=== PATIENT | male | born 1980 | race Caucasian/White ===

== ENCOUNTER 2018-12-17 20:14 | Emergency (ER) | payer MEDICAID ==
[~2018-12-17] VITALS: Ht 160 cm; Wt 55.0 kg
[~2018-12-17 20:14] MED LIST: LANT3I SC; METF500T PO; NOVO3I SC; NPH,100V SC; OMEG-135 PO
[2018-12-17 20:17] VITALS: Ht 160 cm; Wt 55.0 kg
[2018-12-17] MEDS ORDERED: KETOROLAC 30 MG INJ IM STA (20:59)
[2018-12-17] MEDS ORDERED: DEXAMETHASONE 10 MG/ML 1 ML INJ IM ONE (21:00)
[2018-12-17] MEDS ORDERED: HYDROCODONE/APAP (5/325) TAB PO ONE (21:00)
--- NOTE | 2018-12-17 21:12 | ERD ---
ER Documentation Chief Complaint Chief Complaint RIGHT LEG PAIN AND SWELLING X 4 DAYS HPI 38-year-old male with history of diabetes presents right leg pain and swelling for the past 4 days. Denies any history of injury. Also states his been having lower back pain. He is ambulatory. Taking ibuprofen for the pain but is not helping. Patient is ambulatory. Denies saddle numbness, incontinence, pain worse at night or when supine, weight loss, night sweats, fatigue, focal neurological defecits, recent bacterial infection, IV drug use, or immunosuppression. Denies allergies. Denies surgeries. Denies ETOH, drug, or tobacco use. ROS All systems reviewed and are negative except as per history of present illness. Medications Home Meds Active Scripts Hydrocodone/Acetaminophen ([place] 5-325 Tablet) 1 Each Tablet, 1 TAB PO Q6H PRN for PAIN, #10 TAB Prov:SEKOU SAENZ 12/18/18 Ibuprofen* (Motrin*) 600 Mg Tab, 600 MG PO Q6 for pain, #30 TAB Prov:SEKOU SAENZ 12/18/18 Prednisone* (Prednisone*) 20 Mg Tab, 40 MG PO DAILY for back pain for 4 Days, TAB Prov:SEKOU SAENZ 12/18/18 Insulin Aspart* (Novolog Insulin Pen*) 100 Unit/Ml Soln, 12 UNIT SC WITH MEALS for 30 Days Prov:NAVDEEP REID NP 01/29/15 Nph, Human Insulin Isophane (Humulin N) 100 Unit/Ml Solution, 6 UNIT SC HS for 30 Days, VIAL Prov:NAVDEEP REID NP 01/29/15 Insulin Glargine* (Lantus*) 100 Unit/Ml Soln, 24 UNIT SC HS for 30 Days Prov:NAVDEEP REID NP 01/29/15 Metformin Hcl (Glucophage) 500 Mg Tab, 500 MG PO PC BREAKFAST DINNER, #60 Prov:NAVDEEP REID NP 01/29/15 Fish Oil* (Fish Oil*) 1,000 Mg Cap, 1000 MG PO BID for 30 Days, CAP Prov:NAVDEEP REID NP 01/29/15 Allergies Allergies: Coded Allergies: No Known Allergy (Unverified , 01/27/15) PMhx/Soc History of Surgery: No Anesthesia Reaction: No Hx Neurological Disorder: No Hx Respiratory Disorders: No Hx Cardiac Disorders: No Hx Psychiatric Problems: No Hx Miscellaneous Medical Probl: No Hx Alcohol Use: Yes (OCCASIONALLY) Hx Substance Use: No Hx Tobacco Use: Yes (STOPED 2 MONTH AGO) FmHx Family History: No diabetes, No coronary disease, No other Physical Exam Vitals Vital Signs Date Temp Pulse Resp B/P (MAP) Pulse Ox O2 O2 Flow FiO2 Time Delivery Rate 12/17/18 97.9 106 22 150/83 100 20:17 (105) Physical Exam Const: No acute distress Head: Atraumatic Eyes: Normal Conjunctiva ENT: Normal External Ears, Nose and Mouth. Neck: Full range of motion. No meningismus. Resp: Clear to auscultation bilaterally Cardio: Regular rate and rhythm, no murmurs Abd: Soft, non tender, non distended. Normal bowel sounds Skin: No petechiae or rashes Back: No midline or flank tenderness. Limited range of motion. Flexion elicits pain. Positive straight leg raise on left side. There is no edema, erythema, ecchymosis, or conor deformity noted. Overlying skin is intact. Compartments are soft and warm. There is no pallor or cyanosis. Range of motion, distal pulses, and distal sensation is intact. There is normal cap refill. Ext: No cyanosis, or edema Neur: Awake and alert Psych: Normal Mood and Affect Results 24 hrs Laboratory Tests Test 12/17/18 20:55 Creatine Kinase 44 IU/L Current Medications Medications Dose Sig/Kenny Start Time Status Last (Trade) Ordered Route PRN Stop Time Admin Dose Reason Admin 10 mg ONCE ONCE 12/17/18 DC 12/17/18 Dexamethasone IM 21:00 21:40 (Decadron) 12/17/18 21:04 Ketorolac 30 mg ONCE STAT 12/17/18 DC 12/17/18 Tromethamine IM 20:59 21:41 (Toradol) 12/17/18 21:04 1 tab ONCE ONCE 12/17/18 DC 12/17/18 Acetaminophen PO 21:00 21:40 / 12/17/18 21:04 Hydrocodone Bitart (Preston (5/325)) Procedures/MDM IAGNOSTIC IMAGING REPORT Patient: CASA KISER : 1980 Age: 38 Sex: M MR #: [id number] DOS: 12/17/182058 Ordering MD: SEKOU SAENZ Location: [facility] Room/Bed: PROCEDURE: US Lower extremity Venous. CLINICAL INDICATION: Pain and swelling TECHNIQUE: Multiple sonographic images of the left lower extremity deep venous system were obtained utilizing grayscale, color-flow, compressive sonography and doppler imaging with augmentation. The images were reviewed on a PACS workstation. COMPARISON: None. FINDINGS: There is normal compressibility and flow within the left common femoral, superficial femoral and popliteal veins. The visualized deep veins of the calf are patent as well. IMPRESSION: No sonographic evidence for deep venous thrombosis in the left lower extremity. RPTAT:HCLE Physician Raegan Date Time Electronically viewed and signed by pravin Schultz Physician on 12/17/2018 23:35 cE/ CC: SEKOU SAENZ [id number] 38-year-old male with history of diabetes presents right leg pain and swelling for the past 4 days. Denies any history of injury. Also states his been having lower back pain. He is ambulatory. Taking ibuprofen for the pain but is not helping. Patient is ambulatory. Denies saddle numbness, incontinence, pain worse at night or when supine, weight loss, night sweats, fatigue, focal neurological defecits, recent bacterial infection, IV drug use, or immunosuppression. Denies allergies. Denies surgeries. Denies ETOH, drug, or tobacco use. Venous ultrasound and CK were ordered. Both within normal limits. Presentation is consistent with sciatica. Patient given IM Toradol and Decadron in the ER and discharged with short course of steroid and ibuprofen. I have low suspicion for neurovascular compromise, compartment syndrome, fracture, osteomyelitis, septic joint, or other emergent condition. I have low suspicion for epidural abscess, cauda equina, abdominal aortic aneurysm, pyelonephritis, aortic dissection, spinal fracture, or other emergent conditions based on patient history and exam findings. Patient discharged with strict ER p recautions. Patient advised to follow up with PMD. All questions answered at discharge. Departure Diagnosis: Primary Impression: Sciatica Laterality: left Qualified Codes: M54.32 - Sciatica, left side Condition: Stable DANYSEKOU Dec 17, 2018 21:12
[2018-12-18] MEDS ORDERED: IBUP-1542 PO (00:35)
[2018-12-18] MEDS ORDERED: HYDR-4011 PO (00:35)
[2018-12-18] MEDS ORDERED: PRED20TA PO (00:35)
[2018-12-18 00:53] VITALS: BP 133/68; PULSE 81; RESP 19
== END 2018-12-18 00:55 | disposition home or self-care (01) ==
LOC: FTE 20:14
DX: M54.32 Sciatica, left side (principal); E11.9 Type 2 diabetes mellitus without complications; Z79.4 Long term (current) use of insulin; Z87.891 Personal history of nicotine dependence
CPT/HCPCS: 36415; 82550; 93971; 96372; J1100; J1885; Z7502; Z7610

== ENCOUNTER 2019-03-30 08:06 | Emergency (ER) | payer MEDICAID ==
[~2019-03-30] VITALS: Ht 160 cm; Wt 56.5 kg
[~2019-03-30 08:06] MED LIST changes: +HYDR-4011 PO; +IBUP-1542 PO; +PRED20TA PO
[2019-03-30 08:09] VITALS: Ht 160 cm; Wt 56.5 kg
[2019-03-30] MEDS ORDERED: morphine 4 MG/ML VIAL IV STA (08:27)
[2019-03-30] MEDS ORDERED: SOD CHLORIDE 0.9% 1,000 ML IV STA (08:27)
[2019-03-30] MEDS ORDERED: ONDANSETRON 4 MG INJ IV STA (08:27)
[2019-03-30] MEDS ORDERED: CEFTRIAXONE 1 GM/50 ML (PMX) 50 ML IVPB ONE (08:30)
--- NOTE | 2019-03-30 08:30 | ERD ---
ER Documentation Chief Complaint Chief Complaint ABSCESS BEHIND RT EAR FIRST NOTICED 03/27 HPI 38-year-old male presents with complaint of pain redness behind his right ear. First noticed it on Tuesday. States that the pain is currently 10 out of 10. Pain is made worse upon palpation. States that he is up-to-date on his vac cines. Denies any fevers, hearing loss, discharge from the ear, neck stiffness, photophobia, vomiting, focal deficits. ROS All systems reviewed and are negative except as per history of present illness. Medications Home Meds Active Scripts Naloxone Hcl 1mg/1mL 2mL syr (Narcan 1mg/1mL 2mL syr) 1 Mg/Ml Soln, 1 ML NS .Q2- 3 MIN PRN for OPIOID OVERDOSE, #2 SYR Dispense with mucosal atomizer devices. Using mucosal atomizer devices spray 1mL into each nostril. Repeat after 2-3 minutes if no or minimal response. Prov:SEKOU SAENZ 03/30/19 Ibuprofen* (Motrin*) 600 Mg Tab, 600 MG PO Q6H PRN for PAIN AND OR ELEVATED T EMP, #30 TAB Prov:SEKOU SAENZ 03/30/19 Oxycodone HCl/Acetaminophen (Percocet 5-325 mg Tablet) 1 Each Tablet, 1-2 EACH PO Q6, #20 TAB Prov:SEKOU SAENZ 03/30/19 Amoxicillin/Potassium Clav (Amox-Clav 875-125 mg Tablet) 875-125 mg Tab, 1 TAB PO BID for 14 Days, #28 TAB Prov:SEKOU SAENZ 03/30/19 Hydrocodone/Acetaminophen ([place] 5-325 Tablet) 1 Each Tablet, 1 TAB PO Q6H PRN for PAIN, #10 TAB Prov:SEKOU SAENZ 12/18/18 Ibuprofen* (Motrin*) 600 Mg Tab, 600 MG PO Q6 for pain, #30 TAB Prov:SEKOU SAENZ 12/18/18 Prednisone* (Prednisone*) 20 Mg Tab, 40 MG PO DAILY for back pain for 4 Days, TAB Prov:SEKOU SAENZ 12/18/18 Insulin Aspart* (Novolog Insulin Pen*) 100 Unit/Ml Soln, 12 UNIT SC WITH MEALS for 30 Days Prov:NAVDEEP REID STRETCHER HELPER 01/29/15 Nph, Human Insulin Isophane (Humulin N) 100 Unit/Ml Solution, 6 UNIT SC HS for 30 Days, VIAL Prov:NAVDEEP REID STRETCHER HELPER 01/29/15 Insulin Glargine* (Lantus*) 100 Unit/Ml Soln, 24 UNIT SC HS for 30 Days Prov:NAVDEEP REID STRETCHER HELPER 01/29/15 Metformin Hcl (Glucophage) 500 Mg Tab, 500 MG PO PC BREAKFAST DINNER, #60 Prov:NAVDEEP REID STRETCHER HELPER 01/29/15 Fish Oil* (Fish Oil*) 1,000 Mg Cap, 1000 MG PO BID for 30 Days, CAP Prov:NAVDEEP REID STRETCHER HELPER 01/29/15 Allergies Allergies: Coded Allergies: No Known Allergy (Unverified , 01/27/15) PMhx/Soc History of Surgery: No Anesthesia Reaction: No Hx Neurological Disorder: No Hx Respiratory Disorders: No Hx Cardiac Disorders: No Hx Psychiatric Problems: No Hx Miscellaneous Medical Probl: Yes (dm) Hx Alcohol Use: No Hx Substance Use: No Hx Tobacco Use: No Smoking Status: Never smoker FmHx Family History: No diabetes, No coronary disease, No other Physical Exam Vitals Vital Signs Date Temp Pulse Resp B/P (MAP) Pulse Ox O2 O2 Flow FiO2 Time Delivery Rate 03/30/19 97.8 121 16 118/87 100 08:09 (97) Physical Exam Const: No acute distress Head: Atraumatic Eyes: Normal Conjunctiva ENT: Erythema, edema, tenderness palpation over the right mastoid concerning for mastoiditis. There is no discharge noted from ear canals. Neck: Full range of motion. No meningismus. Resp: Clear to auscultation bilaterally Cardio: Regular rate and rhythm, no murmurs Abd: Soft, non tender, non distended. Normal bowel sounds Skin: No petechiae or rashes Back: No midline or flank tenderness Ext: No cyanosis, or edema Neur: Awake and alert Psych: Normal Mood and Affect Neuro: M/S: Alert and oriented Face: EOMI, face and pharynx with normal sensation and function Motor: Normal strength throughout Sensation: Normal sensation throughout Speech: Normal Cerebel: Normal coordination Normal gait Normal finger to nose DTR: 2+ and symmetric upper/lower extremities Result Diagram: 03/30/1984203/30/19 08 Results 24 hrs Laboratory Tests Test 03/30/19 08:43 White Blood Count 10.0 10^3/ul Red Blood Count 4.85 10^6/ul Hemoglobin 13.4 g/dl Hematocrit 40.0 % Mean Corpuscular Volume 82.5 fl Mean Corpuscular Hemoglobin 27.6 pg Mean Corpuscular Hemoglobin Concent 33.5 g/dl Red Cell Distribution Width 13.0 % Platelet Count 227 10^3/UL Mean Platelet Volume 11.4 fl Immature Granulocytes % 0.300 % Neutrophils % 62.4 % Lymphocytes % 22.2 % Monocytes % 13.3 % Eosinophils % 1.2 % Basophils % 0.6 % Nucleated Red Blood Cells % 0.0 /100WBC Immature Granulocytes # 0.030 10^3/ul Neutrophils # 6.3 10^3/ul Lymphocytes # 2.2 10^3/ul Monocytes # 1.3 10^3/ul Eosinophils # 0.1 10^3/ul Basophils # 0.1 10^3/ul Nucleated Red Blood Cells # 0.0 10^3/ul Sodium Level 146 mmol/L Potassium Level 4.4 mmol/L Chloride Level 104 mmol/L Carbon Dioxide Level 29 mmol/L Anion Gap 13 Blood Urea Nitrogen 18 mg/dl Creatinine 0.88 mg/dl Est Glomerular Filtrat Rate mL/min > 60 mL/min Glucose Level 80 mg/dl Calcium Level 9.8 mg/dl Total Bilirubin 0.3 mg/dl Direct Bilirubin 0.00 mg/dl Indirect Bilirubin 0.3 mg/dl Aspartate Amino Transf (AST/SGOT) 36 IU/L Alanine Aminotransferase (ALT/SGPT) 55 IU/L Alkaline Phosphatase 84 IU/L Total Protein 7.6 g/dl Albumin 4.2 g/dl Globulin 3.40 g/dl Albumin/Globulin Ratio 1.23 Current Medications Medications Dose Sig/Kenny Start Time Status Last (Trade) Ordered Route PRN Stop Time Admin Dose Reason Admin Sodium 1,000 ml @ Q1H STAT 03/30/19 DC 03/30/19 Chloride 1,000 mls/hr IV 08:27 08:42 03/30/19 09:26 Morphine 4 mg ONCE STAT 03/30/19 DC 03/30/19 Sulfate IV 08:27 08:42 (morphine) 03/30/19 08:29 Ondansetron 2 mg ONCE STAT 03/30/19 DC 03/30/19 HCl (Zofran IV 08:27 08:41 Inj) 03/30/19 08:29 Ceftriaxone 50 ml @ ONCE ONCE 03/30/19 DC 03/30/19 Sodium 100 mls/hr IVPB 08:30 08:42 03/30/19 08:59 IV Flush 10 ml STK-MED 03/30/19 DC (NS 10 ml) ONCE .ROUTE 09:29 03/30/19 09:30 Sodium 100 ml @ ud STK-MED 03/30/19 DC Chloride ONCE .ROUTE 09:29 03/30/19 09:30 Iohexol 150 ml STK-MED 03/30/19 DC (Omnipaque ONCE .ROUTE 09: 300mg/ ml) 03/30/19 09:30 Procedures/MDM DIAGNOSTIC IMAGING REPORT Patient: CASA KISER : 1980 Age: 38 Sex: M MR #: [id number] DOS: 03/30/19823 Ordering MD: SEKOU SAENZ Location: [facility] Room/Bed: PROCEDURE: CT temporal bones with contrast CLINICAL INDICATION: Pain, swelling behind right ear TECHNIQUE: CT of the temporal bones with contrast was performed on a multidetector CT scanner, with multiplanar reformats. 85 cc Omnipaque-300 intravenous contrast was administered. One or more of the following dose reduct ion techniques were used: Automated exposure control, adjustment in mA and / or kV according to patient size, use of iterative reconstructive technique. CTDIvol = 36 mGy and DLP = 419 mGy-cm. DICOM images are available. COMPARISON: CT brain done at the same time. FINDINGS: Right temporal bone: Again there is soft tissue edema/thickening in the post auricular region.stoid portion with under pneumatization and sclerosis. Residual mastoid air cells are grossly clear. The external auditory canal is patent. The tympanic membrane is thin. The middle ear cavity is clear.. The ossicles and scutum are intact. The bony labyrinth structures are within normal limits and the otic capsule is intact. The vestibular aqueduct is not enlarged. The internal auditory canal is normal in caliber. The adjacent dural sinuses appear patent. Left temporal bone: The external auditory canal is patent. The tympanic membrane is thin. The mastoid air cells and middle ear cavity are clear. The ossicles and scutum are intact. The bony labyrinth structures are within normal limits and the otic capsule is intact. The vestibular aqueduct is not enlarged. The internal auditory canal is normal in caliber. The overlying soft tissues appear unremarkable. The adjacent dural sinuses appear patent. IMPRESSION: Right postauricular soft tissue edema/thickening redemonstrated again consistent with cellulitis. Underlying chronic postinflammatory right mastoid changes without destructive osseous changes or definite findings to suggest acute mastoiditis. RPTAT: VV .Brent Strong MD, MD Date Time Electronically viewed and signed by .Brent Strong MD, MD on 03/30/2019 11:11 .O/ CC: SEKOU SAENZ [phone] MDM: Patient's presentation as well as CT result was consistent for acute mastoiditis. I discussed the case with my supervising physician Dr. Kiah alexander nd he stated patient should be given 1 g of ceftriaxone IV and would be fit to go home on Augmentin with instructions to return in 2 days. I discussed luisa this with the patient with tower truck driver present and patient agreed to come back in 2 days for follow-up exam. At this time of low suspicion for intracranial abscess or other emergent condition. At this time, patient is stable for discharge and outpatient management. I have instructed the patient to follow-up primary care physician in 1 day as well as return to ER in 2 days for follow-up exam. I have discussed with the patient the possibility of needing to see a specialist for further workup and imaging studies if symptoms persist. I have instructed the patient to promptly return to the ER for any new or worsening symptoms including but not limited to increased pain, fever, nausea, vomiting, weakness or LOC. The patient and/or family expressed understanding of and agreement with this plan. All questions were answered. Home care instructions were provided. Patient was also given prescriptions for Naloxone and he and his were instructed on its use. Communication with patient both during the exam and instructions for discharge were performed with using a slice cutting machine operator helper . Patient gave verbal confirmation to the practitioner, through the slice cutting machine operator helper, that they understood everythign that was being said to them. DISCLAIMER: Inadvertent spelling and grammatical errors are likely due to EHR/dictation software use and do not reflect on the overall quality of patient care. Also, please note that the electronic time recorded on this note does not necessarily reflect the actual time of the patient encounter. Departure Diagnosis: Primary Impression: Mastoiditis Condition: Stable SEKOU SAENZ Mar 30, 2019 08:30
[2019-03-30] MEDS ORDERED: SOD CHLORIDE 0.9% 100 ML ONE (09:29)
[2019-03-30] MEDS ORDERED: IOHEXOL 300MG/ML 150 ML BTL ONE (09:29)
[2019-03-30] MEDS ORDERED: AMOX1TAB10 PO (11:32)
[2019-03-30] MEDS ORDERED: OXYC-279 PO (11:32)
[2019-03-30] MEDS ORDERED: IBUP-1542 PO (11:32)
[2019-03-30] MEDS ORDERED: NAR2I NS (11:34)
[2019-03-30] MEDS ORDERED: morphine 2 MG INJ IV STA (11:36)
[2019-03-30 12:01] VITALS: BP 130/86; PULSE 92; RESP 18
== END 2019-03-30 12:02 | disposition home or self-care (01) ==
LOC: FTE 08:06
DX: H70.001 Acute mastoiditis without complications, right ear (principal); E11.9 Type 2 diabetes mellitus without complications; Z79.4 Long term (current) use of insulin
CPT/HCPCS: 36415; 70470; 70480; 80053; 85025; 96365; 96375; 96376; J0696; J2270; J2405; J7030; Q9967; Z7502; Z7610

== ENCOUNTER 2019-04-12 13:16 | Inpatient (IN) | payer MEDICAID ==
[~2019-04-12] VITALS: Ht 160 cm; Wt 58.4 kg
[~2019-04-12 13:16] MED LIST changes: +AMOX1TAB10 PO; +NAR2I NS; +OXYC-279 PO
[2019-04-12] MEDS ORDERED: morphine 4 MG/ML VIAL IV STA (13:39)
[2019-04-12] MEDS ORDERED: SOD CHLORIDE 0.9% 1,000 ML IV STA ×2 (13:39→15:29)
[2019-04-12] MEDS ORDERED: ONDANSETRON 4 MG INJ IV STA (13:39)
[2019-04-12] MEDS ORDERED: SOD CHLORIDE 0.9% 100 ML ONE (14:20)
[2019-04-12] MEDS ORDERED: IOHEXOL 300MG/ML 150 ML BTL ONE (14:20)
[2019-04-12] MEDS ORDERED: INSULIN REGULAR, HUMAN 100 UNIT/1 ML 3ML VIAL IV ONE (15:00)
[2019-04-12] MEDS ORDERED: VANCOMYCIN 1 GM (PMX) 250 ML IVPB ONE (15:30)
[2019-04-12] MEDS ORDERED: PIPER-TAZO 3.375 GM IV (PMX) 100 ML IVPB ONE (15:30)
--- NOTE | 2019-04-12 15:37 | ERD ---
ER Documentation Chief Complaint Chief Complaint right behind ear pain/redness, here 0n [address] c/o same HPI 38-year-old male presenting with pain to the posterior right ear. Patient was seen here 2 weeks ago and treated with 14 days of antibiotics. He states that it cleared up a little bit however the pain has returned and intensified over the last couple days. Denies fevers. Patient is diabetic and uses insulin. Denies any vomiting. Denies any visual changes or headaches. NKDA. Surgical history denies. Social history denies ROS All systems reviewed and are negative except as per history of present illness. Medications Home Meds Active Scripts Naloxone Hcl 1mg/1mL 2mL syr (Narcan 1mg/1mL 2mL syr) 1 Mg/Ml Soln, 1 ML NS .Q2- 3 MIN PRN for OPIOID OVERDOSE, #2 SYR Dispense with mucosal atomizer devices. Using mucosal atomizer devices spray 1mL into each nostril. Repeat after 2-3 minutes if no or minimal response. Prov:SEKOU SAENZ 03/30/19 Ibuprofen* (Motrin*) 600 Mg Tab, 600 MG PO Q6H PRN for PAIN AND OR ELEVATED TEMP, #30 TAB Prov:SEKOU SAENZ 03/30/19 Oxycodone HCl/Acetaminophen (Percocet 5-325 mg Tablet) 1 Each Tablet, 1-2 EACH PO Q6, #20 TAB Prov:SEKOU SAENZ 03/30/19 Amoxicillin/Potassium Clav (Amox-Clav 875-125 mg Tablet) 875-125 mg Tab, 1 TAB PO BID for 14 Days, #28 TAB Prov:SEKOU SAENZ 03/30/19 Hydrocodone/Acetaminophen ([place] 5-325 Tablet) 1 Each Tablet, 1 TAB PO Q6H PRN for PAIN, #10 TAB Prov:SEKOU SAENZ 12/18/18 Ibuprofen* (Motrin*) 600 Mg Tab, 600 MG PO Q6 for pain, #30 TAB Prov:SEKOU SAENZ 12/18/18 Prednisone* (Prednisone*) 20 Mg Tab, 40 MG PO DAILY for back pain for 4 Days, TAB Prov:SEKOU SAENZ 12/18/18 Insulin Aspart* (Novolog Insulin Pen*) 100 Unit/Ml Soln, 12 UNIT SC WITH MEALS for 30 Days Prov:NAVDEEP REID [employer] 01/29/15 Nph, Human Insulin Isophane (Humulin N) 100 Unit/Ml Solution, 6 UNIT SC HS for 30 Days, VIAL Prov:NAVDEEP REID NP 01/29/15 Insulin Glargine* (Lantus*) 100 Unit/Ml Soln, 24 UNIT SC HS for 30 Days Prov:NAVDEEP REID NP 01/29/15 Metformin Hcl (Glucophage) 500 Mg Tab, 500 MG PO PC BREAKFAST DINNER, #60 Prov:NAVDEEP REID NP 01/29/15 Fish Oil* (Fish Oil*) 1,000 Mg Cap, 1000 MG PO BID for 30 Days, CAP Prov:NAVDEEP REID NP 01/29/15 Allergies Allergies: Coded Allergies: No Known Allergy (Unverified , 01/27/15) PMhx/Soc History of Surgery: Yes (Bilat eyes) Anesthesia Reaction: No Hx Neurological Disorder: No Hx Respiratory Disorders: No Hx Cardiac Disorders: No Hx Psychiatric Problems: No Hx Miscellaneous Medical Probl: No Hx Alcohol Use: No Hx Substance Use: No Hx Tobacco Use: No Smoking Status: Never smoker FmHx Family History: No diabetes, No coronary disease, No other Physical Exam Vitals Vital Signs Date Temp Pulse Resp B/P (MAP) Pulse Ox O2 O2 Flow FiO2 Time Delivery Rate 04/12/19 98.1 110 18 123/60 99 13:19 (81) Physical Exam GENERAL: The patient is well-appearing, well-nourished, in no acute distress HEENT: Atraumatic. Conjunctivae are pink. Pupils equal, round, and reactive to light. There is no scleral icterus. Tympanic membranes clear bilaterally. Oropharynx clear. Positive mastoid tenderness NECK: C-spine is soft and supple. There is no meningismus. There is no cervical lymphadenopathy. CHEST: Clear to auscultation bilaterally. There are no rales, wheezes or rhonchi. HEART: Regular rate and rhythm. No murmurs, clicks, rubs or gallops. No S3 or S4. SKIN: Erythema noted to posterior right ear with swelling. Questionable fluctuance however exam is limited secondary to patient's intolerance of pain. Result Diagram: 04/12/19 1401 04/12/19 1401 Results 24 hrs Laboratory Tests Test 04/12/19 14:01 04/12/19 14:56 04/12/19 15:39 White Blood Count 16.8 10^3/ul Red Blood Count 4.63 10^6/ul Hemoglobin 12.6 g/dl Hematocrit 37.1 % Mean Corpuscular Volume 80.1 fl Mean Corpuscular Hemoglobin 27.2 pg Mean Corpuscular Hemoglobin Concent 34.0 g/dl Red Cell Distribution Width 12.7 % Platelet Count 249 10^3/UL Mean Platelet Volume 11.9 fl Immature Granulocytes % 0.400 % Neutrophils % 83.8 % Lymphocytes % 8.8 % Monocytes % 6.1 % Eosinophils % 0.4 % Basophils % 0.5 % Nucleated Red Blood Cells % 0.0 /100WBC Immature Granulocytes # 0.060 10^3/ul Neutrophils # 14.1 10^3/ul Lymphocytes # 1.5 10^3/ul Monocytes # 1.0 10^3/ul Eosinophils # 0.1 10^3/ul Basophils # 0.1 10^3/ul Nucleated Red Blood Cells # 0.0 10^3/ul Urine Color STRAW Urine Clarity CLEAR Urine pH 5.0 Urine Specific [place] 1.024 Urine Ketones NEGATIVE mg/dL Urine Nitrite NEGATIVE mg/dL Urine Bilirubin NEGATIVE mg/dL Urine Urobilinogen NEGATIVE mg/dL Urine Leukocyte Esterase NEGATIVE Jori/ul Urine Hemoglobin NEGATIVE mg/dL Urine Glucose 3+ mg/dL Urine Total Protein NEGATIVE mg/dl Sodium Level 138 mmol/L Potassium Level 5.0 mmol/L Chloride Level 96 mmol/L Carbon Dioxide Level 28 mmol/L Anion Gap 14 Blood Urea Nitrogen 25 mg/dl Creatinine 1.06 mg/dl Est Glomerular Filtrat Rate mL/min > 60 mL/min Glucose Level 494 mg/dl Calcium Level 9.5 mg/dl Total Bilirubin 0.7 mg/dl Direct Bilirubin 0.00 mg/dl Indirect Bilirubin 0.7 mg/dl Aspartate Amino Transf (AST/SGOT) 15 IU/L Alanine Aminotransferase (ALT/SGPT) 22 IU/L Alkaline Phosphatase 83 IU/L Total Protein 7.6 g/dl Albumin 4.1 g/dl Globulin 3.50 g/dl Albumin/Globulin Ratio 1.17 Bedside Glucose 403 mg/dL POC Venous Lactate 1.0 mmol/L Current Medications Medications Dose Sig/Kenny Start Time Status Last (Trade) Ordered Route PRN Stop Time Admin Dose Reason Admin Sodium 1,000 ml @ Q1H STAT 04/12/19 DC 04/12/19 Chloride 1,000 mls/hr IV 13:39 04/12/19 13:59 14:38 Morphine 4 mg ONCE STAT 04/12/19 DC 04/12/19 Sulfate IV 13:39 04/12/19 13:58 (morphine) 13:41 Ondansetron 4 mg ONCE STAT 04/12/19 DC 04/12/19 HCl (Zofran IV 13:39 04/12/19 13:58 Inj) 13:41 IV Flush 10 ml STK-MED 04/12/19 DC 04/12/19 (NS 10 ml) ONCE .ROUTE 14:20 04/12/19 14:49 14:21 Sodium 100 ml @ ud STK-MED 04/12/19 DC 04/12/19 Chloride ONCE .ROUTE 14:20 04/12/19 14:49 14:21 Iohexol 150 ml STK-MED 04/12/19 DC 04/12/19 (Omnipaque ONCE .ROUTE 14:20 04/12/19 14:53 300mg/ ml) 14:21 Insulin 10 unit ONCE ONCE 04/12/19 DC 04/12/19 Human IV 15:00 04/12/19 14:58 Regular 15:01 (Humulin R) Sodium 1,000 ml @ Q1H STAT 04/12/19 04/12/19 Chloride 1,000 mls/hr IV 15:29 04/12/19 15:33 16:28 Piperacillin 100 ml @ ONCE ONCE 04/12/19 04/12/19 Sod/ 200 mls/hr IVPB 15:30 04/12/19 15:40 Tazobactam 15:59 Sod Vancomycin 250 ml @ ONCE ONCE 04/12/19 HCl 125 mls/hr IVPB 15:30 04/12/19 17:29 Procedures/MDM DIAGNOSTIC IMAGING REPORT Patient: CASA KISER : 1980 Age: 38 Sex: M MR #: [id number] DOS: 04/12/19 1339 Ordering MD: NATHAN CARRENO PA-C Location: [facility] Room/Bed: PROCEDURE: CT temporal bones with contrast CLINICAL INDICATION: Right post auricular pain, redness TECHNIQUE: CT of the temporal bones with contrast was performed on a multidetector CT scanner, with multiplanar reformats. 80 cc Omnipaque-300 intravenous contrast was administered. One or more of the following dose reduction techniques were used: Automated exposure control, adjustment in mA and / or kV according to patient size, use of iterative reconstructive technique. CTDIvol = 53 mGy and DLP = 594 mGy-cm. DICOM images are available. COMPARISON: 03/30/2019 FINDINGS: Right temporal bone: There is persistent soft tissue edema/thickening in the postauricular region, now extending into the adjacent imaged upper right posterior lateral neck with s mall enhancing superficial lymph node noted; a discrete irregular focal area of hypodensity is now seen in the post auricular region measuring up to approximately 1.1 cm. No underlying osseous destructive change is seen. Again, there are chronic postinflammatory changes of the mastoid portion with under pneumatization and sclerosis. The external auditory canal is patent. The tympanic membrane is thin. The middle ear cavity is clear. The ossicles and scutum are intact. The bony labyrinth structures are within normal limits and the otic capsule is intact. The vestibular aqueduct is not enlarged. The internal auditory canal is normal in caliber. The adjacent dural sinuses appear patent. Left temporal bone: The external auditory canal is patent. The tympanic membrane is thin. The ma stoid air cells and middle ear cavity are clear. The ossicles and scutum are intact. The bony labyrinth structures are within normal limits and the otic capsule is intact. The vestibular aqueduct is not enlarged. The internal auditory canal is normal in caliber. The adjacent dural sinuses appear patent. IMPRESSION: Persistent right postauricular soft tissue edema/thickening compatible with cellulitis, now extending into the adjacent right neck, with a discrete small focal hypodensity now seen in the right postauricular region concerning for abscess. Results called to Dr. Carreno at 03:21 p.m., 04/12/2019. ER Course: 2L NS given, Zosyn and Vanco given. Blood cultures sent. IV morphine given in ED. IM insulin given ED (insulin ordered as IV but correction was made and was administered as IM). Lactate POC 1.0 DM: 38-year-old male presenting with erythema to the posterior right ear. Patient has findings concerning for mastoiditis with adjacent cellulitis. He will be admitted for higher level care and IV antibiotics. Patient is stable at the time of admission. This case was discussed with Dr. Issa who will help facilitate admission. Departure Diagnosis: Primary Impression: Mastoiditis Additional Impression: NICOLE Hearn PA-C Apr 12, 2019 15:37
[2019-04-12] MEDS ORDERED: HYDROmorphONE 0.5 MG/0.5 ML SYG IV STA (17:17)
[2019-04-12] MEDS ORDERED: ACETAMINOPHEN 325 MG TAB PO PRN ×2 (17:30→19:00)
[2019-04-12] MEDS ORDERED: ONDANSETRON 4 MG INJ IV PRN ×2 (17:30→19:00)
[2019-04-12 18:45] VITALS: BP 122/79; PULSE 105; RESP 17
--- NOTE | 2019-04-12 18:45 | HP ---
Date/Time of Note Date/Time of Note DATE: 04/12/19 TIME: 18:45 Assessment/Plan VTE Prophylaxis SCD applied (from Nsg): No SCD contraindicated: other Pharmacological prophylaxis: heparin Lines/Catheters IV Catheter Type (from Nrsg): Saline Lock Assessment/Plan Hospital Course A/P: 38 M p/w: #Right ear pain/abscess: Patient appears to have failed p.o. antibiotic treatment for the last 2 weeks as outpatient: Again orbit/head CT today shows:head/orbital CT shows Persistent right postauricular soft tissue ed aurora/thickening compatible with cellulitis, now extending into the adjacent right neck, with a discrete small focal hypodensity now seen in the right postauricular region concerning for abscess -Admit patient for IV antibiotics, follow-up TSH, A1c, lipid panel -Pain control medications, IV fluids, Tylenol PM pain fevers, also follow-up recommendations from the ENT team who has been consulted # DM -sugars improved after initially being made with sugars in 300-400 range -Monitor sugars, f/u A1c, ISS, lantus # high chol: f/u lipid panel, statin Result Diagram: 04/12/19 1401 04/12/19 1401 Results 24hrs Laboratory Tests Test 04/12/19 14:01 04/12/19 14:56 04/12/19 15:39 04/12/19 15:40 White Blood Count 16.8 #H Red Blood Count 4.63 L Hemoglobin 12.6 L Hematocrit 37.1 L Mean Corpuscular Volume 80.1 L Mean Corpuscular 27.2 L Hemoglobin Mean Corpuscular 34.0 Hemoglobin Concent Red Cell Distribution 12.7 Width Platelet Count 249 Mean Platelet Volume 11.9 H Immature Granulocytes % 0.400 Neutrophils % 83.8 H Lymphocytes % 8.8 L Monocytes % 6.1 Eosinophils % 0.4 Basophils % 0.5 Nucleated Red Blood 0.0 Cells % Immature Granulocytes # 0.060 H Neutrophils # 14.1 H Lymphocytes # 1.5 Monocytes # 1.0 H Eosinophils # 0.1 Basophils # 0.1 Nucleated Red Blood 0.0 Cells # Urine Color STRAW Urine Clarity CLEAR Urine pH 5.0 Urine Specific [place] 1.024 Urine Ketones NEGATIVE Urine Nitrite NEGATIVE Urine Bilirubin NEGATIVE Urine Urobilinogen NEGATIVE Urine Leukocyte Esterase NEGATIVE Urine Hemoglobin NEGATIVE Urine Glucose 3+ H Urine Total Protein NEGATIVE Sodium Level 138 Potassium Level 5.0 Chloride Level 96 L Carbon Dioxide Level 28 Anion Gap 14 H Blood Urea Nitrogen 25 H Creatinine 1.06 Est Glomerular Filtrat > 60 Rate mL/min Glucose Level 494 *H Calcium Level 9.5 Total Bilirubin 0.7 Direct Bilirubin 0.00 Indirect Bilirubin 0.7 Aspartate Amino 15 Transf (AST/SGOT) Alanine 22 Aminotransferase (ALT/SG PT) Alkaline Phosphatase 83 Total Protein 7.6 Albumin 4.1 Globulin 3.50 H Albumin/Globulin Ratio 1.17 Bedside Glucose 403 *H 329 H POC Venous Lactate 1.0 Test 04/12/19 17:16 Bedside Glucose 179 HPI/ROS Admit Date/Time Admit Date/Time Apr 12, 2019 at 17:06 Hx of Present Illness 38-year-old male past medical history of diabetes, high cholesterol, who presents with right ear pain. Patient was seen in the ER 2 weeks ago when symptoms first began and sent home with 14 days of p.o. antibiotics. Patient stated some improvement with the antibiotic treatment, however the pain has returned and intensified over the last couple days. Denies fevers. Patient is diabetic and uses insulin. Patient has a nausea symptoms but denies any vomiting. Denies any visual changes or headaches. Patient denied any diarrhea constipation, no upper or lower GI bleeding. When he came in today he was found with elevated blood sugars in 3-400 range was given insulin in the ER. Also his head/orbital CT shows Persistent right postauricular soft tissue edema/thickening compatible with cellulitis, now extending into the adjacent right neck, with a discrete small focal hypodensity now seen in the right postauricular region concerning for abscess, and because of the sick call has been made out to the ENT doctor to come evaluate the patient, patient also got IV antibiotics to start in the ER for this. PMH/Family/Social Past Medical History Medications Current Medications IV Flush (NS 3 ml) 3 ml PER PROTOCOL IV ; Start 04/12/19 at 19:00 Ondansetron HCl (Zofran Inj) 4 mg Q6H PRN IV NAUSEA/VOMITING; Start 04/12/19 at 19:00 Acetaminophen (Tylenol Tab) 650 mg Q6H PRN PO .PAIN 1-3 OR TEMP; Start 04/12/19 at 19:00 Acetaminophen/ Hydrocodone Bitart ([place] (5/325)) 1 tab Q6H PRN PO .MOD PAIN 4- 6; Start 04/12/19 at 19:00 Morphine Sulfate (morphine) 2 mg Q4H PRN IV .SEVERE PAIN 7-10; Start 04/12/19 at 19:00 Docusate Sodium (Colace) 100 mg Q12H PRN PO .CONSTIPATION; Start 04/12/19 at 19:00 Magnesium Hydroxide (Milk Of Mag) 30 ml DAILY PRN PO .CONSTIPATION; Start 04/12/19 at 19:00 Pantoprazole (Protonix Tab) 40 mg DAILY@06 PO ; Start 04/13/19 at 06:00 Lorazepam (Ativan) 0.5 mg Q6H PRN IV ANXIETY; Start 04/12/19 at 19:00 Sodium Chloride 1,000 ml @ 100 mls/hr Q10H IV ; Start 04/12/19 at 18:31 Albuterol/ Ipratropium (Duoneb) 3 ml Q4H RESP THERAPY PRN HHN SHORTNESS OF BREATH; Start 04/12/19 at 19:00 Piperacillin Sod/ Tazobactam Sod 100 ml @ 200 mls/hr Q6 IVPB ; Start 04/13/19 at 00:00; Status UNV Hydralazine HCl (Apresoline) 10 mg Q6H PRN IV ELEVATED BLOOD PRESSURE; Start 04/12/19 at 19:00 Nitroglycerin (Nitroglycerin (Sl Tab) 0.4 Mg) 1 tab Q5M PRN SL ANGINA; Start 04/12/19 at 19:00 Miscellaneous Information (* Miscellaneous Pharmacy Order) Discontinue current oral sulfonylur... ONCE ONCE XX ; Start 04/12/19 at 19:00; Stop 04/12/19 at 19:01 Diagnostic Test (Pha) (Accu-Chek) 1 ea 02 XX ; Start 04/13/19 at 02:00 Miscellaneous Information (* Miscellaneous Pharmacy Order) HYPOGLYCEMIA PROTOCOL w... ONCE ONCE XX ; Start 04/12/19 at 19:00; Stop 04/12/19 at 19:01 Insulin Aspart (Novolog Insulin Pen) NOVOLOG *MILD* ALGORI... Q4 SC ; Start 04/12/19 at 21:00 Miscellaneous Information (* Miscellaneous Pharmacy Order) Discontinue all previ... ONCE ONCE XX ; Start 04/12/19 at 19:00; Stop 04/12/19 at 19:01 Fish Oil (Fish Oil) 1,000 mg BID PO ; Start 04/12/19 at 21:00 Insulin Glargine (Lantus) 24 units HS SC ; Start 04/12/19 at 21:00 Miscellaneous Information 1 ea NOTE XX ; Start 04/12/19 at 19:00 Glucose (Glutose) 15 gm Q15M PRN PO DECREASED GLUCOSE; Start 04/12/19 at 19:00 Glucose (Glutose) 22.5 gm Q15M PRN PO DECREASED GLUCOSE; Start 04/12/19 at 19:00 Dextrose (D50w Syringe) 25 ml Q15M PRN IV DECREASED GLUCOSE; Start 04/12/19 at 19:00 Dextrose (D50w Syringe) 50 ml Q15M PRN IV DECREASED GLUCOSE; Start 04/12/19 at 19:00 Glucagon (Glucagen) 1 mg Q15M PRN IM DECREASED GLUCOSE; Start 04/12/19 at 19:00 Glucose (Glutose) 15 gm Q15M PRN BUCCAL DECREASED GLUCOSE; Start 04/12/19 at 19:00 Coded Allergies: No Known Allergy (Unverified , 01/27/15) Past Surgical History Past Surgical Hx: no surgical history Family History Significant Family History: diabetes Social History Alcohol Use: none Smoking Status: Never smoker Drug Use: none Exam/Review of Systems Vital Signs Vitals Vital Signs Date Temp Pulse Resp B/P (MAP) Pulse Ox O2 O2 Flow FiO2 Time Delivery Rate 04/12/19 97.5 111 18 113/74 98 Room Air 17:52 (87) Exam Exam GENERAL: lying in bed, well-nourished, in no acute distress HEENT: Atraumatic. Conjunctivae are pink. Pupils equal, round, and reactive to light. Positive mastoid tenderness NECK: supple RES: Clear to auscultation bilaterally. There are no rales, wheezes or rhonchi. HEART: Regular rate and rhythm. No murmurs, clicks, rubs or gallops. No S3 or S4. GI: NT, ND, soft, no R or G M/S: no LE edema B/L SKIN: Erythema noted to posterior right ear with swelling. Questionable fluctuance however exam is limited secondary to patient's intolerance of pain. KELLEY CAMILO. Apr 12, 2019 18:45
[2019-04-12 18:48] VITALS: Ht 160 cm; Wt 58.4 kg
[2019-04-12] MEDS ORDERED: DOCUSATE SODIUM 100 MG CAP PO PRN (19:00)
[2019-04-12] MEDS ORDERED: hydrALAzine 20 MG INJ IV PRN (19:00)
[2019-04-12] MEDS ORDERED: GLUCOSE GEL 15 GRAM TUBE BUCCAL PRN (19:00)
[2019-04-12] MEDS ORDERED: LORAZEPAM 2 MG INJ IV PRN (19:00)
[2019-04-12] MEDS ORDERED: NITROGLYCERIN (SL) 0.4 MG TAB SL PRN (19:00)
[2019-04-12] MEDS ORDERED: DEXTROSE 50% 50 ML SYRINGE IV PRN ×2 (19:00)
[2019-04-12] MEDS ORDERED: ALBUTEROL/IPRATROPIUM (NEB) 3 ML AMP HHN PRN (19:00)
[2019-04-12] MEDS ORDERED: GLUCOSE GEL 15 GRAM TUBE PO PRN ×2 (19:00)
[2019-04-12] MEDS ORDERED: MAGNESIUM HYDROXIDE 30ML CUP PO PRN (19:00)
[2019-04-12] MEDS ORDERED: GLUCAGON 1 MG INJ IM PRN (19:00)
[2019-04-12] MEDS ORDERED: NACL 0.9% 3 ML SYG IV SCH (19:00)
[2019-04-12] MEDS: HYDROCODONE/APAP (5/325) TAB PO PRN (19:45)
[2019-04-12 20:00] VITALS: BP 120/79; PULSE 107; RESP 20
[2019-04-12] MEDS: SOD CHLORIDE 0.9% 1,000 ML IV SCH (20:01)
[2019-04-12] MEDS ORDERED: INSULIN ASPART [NOVOLOG] 3 ML PEN SC SCH (21:00)
[2019-04-12] MEDS: INSULIN ASPART [NOVOLOG] 3 ML PEN SC SCH (21:00)
[2019-04-12] MEDS: FISH OIL 1,000 MG CAP PO SCH (21:19)
[2019-04-12] MEDS: INSULIN GLARGINE [LANTus] (100 UNITS/ML) SYG SC SCH (21:20)
[2019-04-12] MEDS: morphine 2 MG INJ IV PRN (22:15)
[2019-04-12] MEDS: PIPER-TAZO 3.375 GM IV (PMX) 100 ML IVPB SCH (23:56)
[2019-04-13] MEDS: HYDROCODONE/APAP (5/325) TAB PO PRN ×3 (01:51→20:29)
[2019-04-13 02:00] VITALS: BP 115/75; PULSE 106; RESP 16
[2019-04-13] MEDS: ACCU-CHEK XX SCH (02:00)
[2019-04-13] MEDS: PIPER-TAZO 3.375 GM IV (PMX) 100 ML IVPB SCH ×3 (06:08→17:11)
[2019-04-13] MEDS: PANTOPRAZOLE (EC) 40 MG TAB PO SCH (06:08)
[2019-04-13] MEDS: SOD CHLORIDE 0.9% 1,000 ML IV SCH ×3 (06:08→20:42)
[2019-04-13] MEDS: morphine 2 MG INJ IV PRN ×4 (06:11→23:16)
[2019-04-13] MEDS ORDERED: GABA400C14 PO (06:27)
[2019-04-13] MEDS ORDERED: CYCL5TAB PO (06:27)
[2019-04-13] MEDS ORDERED: MTF1000T PO (06:27)
[2019-04-13] MEDS ORDERED: LISI2.5T59 PO (06:27)
[2019-04-13] MEDS ORDERED: ATOR20TA65 PO (06:27)
[2019-04-13] MEDS ORDERED: CHOL400C PO (06:33)
[2019-04-13 07:21] VITALS: BP 111/77; PULSE 100; RESP 18
[2019-04-13] MEDS: FISH OIL 1,000 MG CAP PO SCH ×2 (08:13→20:30)
[2019-04-13] MEDS: INSULIN ASPART [NOVOLOG] 3 ML PEN SC SCH ×4 (08:15→20:35)
[2019-04-13] MEDS ORDERED: LIDOCAINE 1%/EPI (MDV) 50 ML INJ INJ ONE (11:00)
[2019-04-13] MEDS ORDERED: LIDOCAINE 1%/EPI 30 ML INJ INJ ONE (11:30)
--- NOTE | 2019-04-13 12:05 | PN ---
Date/Time of Note Date/Time of Note DATE: 04/13/19 TIME: 12:00 Assessment/Plan VTE Prophylaxis Risk score (from Nsg)>0 risk: 1 SCD applied (from Nsg): Yes Pharmacological prophylaxis: other Lines/Catheters IV Catheter Type (from Nrsg): Peripheral IV Assessment/Plan Hospital Course S: Patient still having pain symptoms. Waiting to be seen by ENT team. O: Vs- see below PE: GENERAL: lying in bed, still in mild distress HEENT: Atraumatic. Conjunctivae are pink. Pupils equal, round, and reactive to light. Positive mastoid tenderness NECK: supple RES: Clear to auscultation bilaterally. There are no rales, wheezes or rhonchi. HEART: Regular rate and rhythm. No murmurs, clicks, rubs or gallops. No S3 or S4. GI: NT, ND, soft, no R or G M/S: no LE edema B/L SKIN: Erythema noted to posterior right ear with swelling. Questionable fluctuance however exam is limited secondary to patient's intolerance of pain. A/P: 38 M p/w: #Right ear pain/abscess: Patient still in pain, no fevers overnight. Waiting to be seen by ENT team. Again, patient failed p.o. antibiotic treatment for the last 2 weeks as outpatient: Again orbit/head CT on admission showed: Persistent right postauricular soft tissue edema/thickening compatible with cellulitis, now extending into the adjacent right neck, with a discrete small focal hypodensity now seen in the right postauricular region concerning for abscess -Continue IV antibiotics, follow-up TSH, A1c, lipid panel -Pain control medications, IV fluids, Tylenol PM pain fevers, -For likely abscess drainage later today by ENT team who has been consulted -follow-up post procedure recommendations # DM -A1c is 9.2. Sugars much improved since admission -Monitor sugars, continue current doses of sliding scale insulin and Lantus # high chol: Continue fish oil Result Diagram: 04/13/19 0504/13/19 05 Results 24hrs Laboratory Tests Test 04/12/19 14:00 04/12/19 14:01 04/12/19 14:56 04/12/19 15:39 Free Thyroxine 1.63 White Blood Count 16.8 #H Red Blood Count 4.63 L Hemoglobin 12.6 L Hematocrit 37.1 L Mean Corpuscular Volume 80.1 L Mean Corpuscular 27.2 L Hemoglobin Mean Corpuscular 34.0 Hemoglobin Concent Red Cell Distribution 12.7 Width Platelet Count 249 Mean Platelet Volume 11.9 H Immature Granulocytes % 0.400 Neutrophils % 83.8 H Lymphocytes % 8.8 L Monocytes % 6.1 Eosinophils % 0.4 Basophils % 0.5 Nucleated Red Blood 0.0 Cells % Immature Granulocytes # 0.060 H Neutrophils # 14.1 H Lymphocytes # 1.5 Monocytes # 1.0 H Eosinophils # 0.1 Basophils # 0.1 Nucleated Red Blood 0.0 Cells # Urine Color STRAW Urine Clarity CLEAR Urine pH 5.0 Urine Specific [place] 1.024 Urine Ketones NEGATIVE Urine Nitrite NEGATIVE Urine Bilirubin NEGATIVE Urine Urobilinogen NEGATIVE Urine Leukocyte Esterase NEGATIVE Urine Hemoglobin NEGATIVE Urine Glucose 3+ H Urine Total Protein NEGATIVE Sodium Level 138 Potassium Level 5.0 Chloride Level 96 L Carbon Dioxide Level 28 Anion Gap 14 H Blood Urea Nitrogen 25 H Creatinine 1.06 Est Glomerular Filtrat > 60 Rate mL/min Glucose Level 494 *H Calcium Level 9.5 Total Bilirubin 0.7 Direct Bilirubin 0.00 Indirect Bilirubin 0.7 Aspartate Amino 15 Transf (AST/SGOT) Alanine 22 Aminotransferase (ALT/SG PT) Alkaline Phosphatase 83 Total Protein 7.6 Albumin 4.1 Globulin 3.50 H Albumin/Globulin Ratio 1.17 Bedside Glucose 403 *H POC Venous Lactate 1.0 Test 04/12/19 15:40 04/12/19 17:16 04/12/19 21:16 04/12/19 22:09 Bedside Glucose 329 H 179 175 Sodium Level 138 Potassium Level 4.4 Chloride Level 104 Carbon Dioxide Level 26 Anion Gap 8 Blood Urea Nitrogen 19 Creatinine 0.89 Est Glomerular Filtrat > 60 Rate mL/min Glucose Level 185 # Calcium Level 8.2 L Test 04/13/19 05:25 04/13/19 05:26 04/13/19 07:56 04/13/19 11:55 White Blood Count 16.6 H Red Blood Count 3.99 L Hemoglobin 10.9 L Hematocrit 32.1 L Mean Corpuscular Volume 80.5 L Mean Corpuscular 27.3 L Hemoglobin Mean Corpuscular 34.0 Hemoglobin Concent Red Cell Distribution 12.9 Width Platelet Count 215 Mean Platelet Volume 11.8 H Immature Granulocytes % 0.500 H Neutrophils % 73.1 Lymphocytes % 17.9 Monocytes % 6.9 Eosinophils % 1.1 Basophils % 0.5 Nucleated Red Blood 0.0 Cells % Immature Granulocytes # 0.090 H Neutrophils # 12.1 H Lymphocytes # 3.0 H Monocytes # 1.1 H Eosinophils # 0.2 Basophils # 0.1 Nucleated Red Blood 0.0 Cells # Hemoglobin A1c 9.2 H Sodium Level 139 Potassium Level 4.6 Chloride Level 104 Carbon Dioxide Level 27 Anion Gap 8 Blood Urea Nitrogen 17 Creatinine 0.83 Est Glomerular Filtrat > 60 Rate mL/min Glucose Level 148 Calcium Level 8.3 L Phosphorus Level 3.9 Magnesium Level 1.3 L Triglycerides Level 88 Cholesterol Level 93 L LDL Cholesterol, 45 Calculated HDL Cholesterol 30 Cholesterol/HDL Ratio 3.1 Thyroid Stimulating 1.460 Hormone (TSH) Bedside Glucose 164 164 Exam/Review of Systems Exam Vitals Vital Signs Date Temp Pulse Resp B/P (MAP) Pulse Ox O2 O2 Flow FiO2 Time Delivery Rate 04/13/19 98.2 100 18 111/77 99 Room Air 07:21 (88) Intake and Output 04/12/19 04/12/19 04/13/19 1414:59 22:59 06:59 IntakeIntake Total 2350 ml 1200 ml BalanceBalance 2350 ml 1200 ml Results Results 24hrs Laboratory Tests Test 04/12/19 14:00 04/12/19 14:01 04/12/19 14:56 04/12/19 15:39 Free Thyroxine 1.63 White Blood Count 16.8 #H Red Blood Count 4.63 L Hemoglobin 12.6 L Hematocrit 37.1 L Mean Corpuscular Volume 80.1 L Mean Corpuscular 27.2 L Hemoglobin Mean Corpuscular 34.0 Hemoglobin Concent Red Cell Distribution 12.7 Width Platelet Count 249 Mean Platelet Volume 11.9 H Immature Granulocytes % 0.400 Neutrophils % 83.8 H Lymphocytes % 8.8 L Monocytes % 6.1 Eosinophils % 0.4 Basophils % 0.5 Nucleated Red Blood 0.0 Cells % Immature Granulocytes # 0.060 H Neutrophils # 14.1 H Lymphocytes # 1.5 Monocytes # 1.0 H Eosinophils # 0.1 Basophils # 0.1 Nucleated Red Blood 0.0 Cells # Urine Color STRAW Urine Clarity CLEAR Urine pH 5.0 Urine Specific [place] 1.024 Urine Ketones NEGATIVE Urine Nitrite NEGATIVE Urine Bilirubin NEGATIVE Urine Urobilinogen NEGATIVE Urine Leukocyte Esterase NEGATIVE Urine Hemoglobin NEGATIVE Urine Glucose 3+ H Urine Total Protein NEGATIVE Sodium Level 138 Potassium Level 5.0 Chloride Level 96 L Carbon Dioxide Level 28 Anion Gap 14 H Blood Urea Nitrogen 25 H Creatinine 1.06 Est Glomerular Filtrat > 60 Rate mL/min Glucose Level 494 *H Calcium Level 9.5 Total Bilirubin 0.7 Direct Bilirubin 0.00 Indirect Bilirubin 0.7 Aspartate Amino 15 Transf (AST/SGOT) Alanine 22 Aminotransferase (ALT/SG PT) Alkaline Phosphatase 83 Total Protein 7.6 Albumin 4.1 Globulin 3.50 H Albumin/Globulin Ratio 1.17 Bedside Glucose 403 *H POC Venous Lactate 1.0 Test 04/12/19 15:40 04/12/19 17:16 04/12/19 21:16 04/12/19 22:09 Bedside Glucose 329 H 179 175 Sodium Level 138 Potassium Level 4.4 Chloride Level 104 Carbon Dioxide Level 26 Anion Gap 8 Blood Urea Nitrogen 19 Creatinine 0.89 Est Glomerular Filtrat > 60 Rate mL/min Glucose Level 185 # Calcium Level 8.2 L Test 04/13/19 05:25 04/13/19 05:26 04/13/19 07:56 04/13/19 11:55 White Blood Count 16.6 H Red Blood Count 3.99 L Hemoglobin 10.9 L Hematocrit 32.1 L Mean Corpuscular Volume 80.5 L Mean Corpuscular 27.3 L Hemoglobin Mean Corpuscular 34.0 Hemoglobin Concent Red Cell Distribution 12.9 Width Platelet Count 215 Mean Platelet Volume 11.8 H Immature Granulocytes % 0.500 H Neutrophils % 73.1 Lymphocytes % 17.9 Monocytes % 6.9 Eosinophils % 1.1 Basophils % 0.5 Nucleated Red Blood 0.0 Cells % Immature Granulocytes # 0.090 H Neutrophils # 12.1 H Lymphocytes # 3.0 H Monocytes # 1.1 H Eosinophils # 0.2 Basophils # 0.1 Nucleated Red Blood 0.0 Cells # Hemoglobin A1c 9.2 H Sodium Level 139 Potassium Level 4.6 Chloride Level 104 Carbon Dioxide Level 27 Anion Gap 8 Blood Urea Nitrogen 17 Creatinine 0.83 Est Glomerular Filtrat > 60 Rate mL/min Glucose Level 148 Calcium Level 8.3 L Phosphorus Level 3.9 Magnesium Level 1.3 L Triglycerides Level 88 Cholesterol Level 93 L LDL Cholesterol, 45 Calculated HDL Cholesterol 30 Cholesterol/HDL Ratio 3.1 Thyroid Stimulating 1.460 Hormone (TSH) Bedside Glucose 164 164 Medications Medication Current Medications IV Flush (NS 3 ml) 3 ml PER PROTOCOL IV ; Start 04/12/19 at 19:00 Ondansetron HCl (Zofran Inj) 4 mg Q6H PRN IV NAUSEA/VOMITING; Start 04/12/19 at 19:00 Acetaminophen (Tylenol Tab) 650 mg Q6H PRN PO .PAIN 1-3 OR TEMP; Start 04/12/19 at 19:00 Acetaminophen/ Hydrocodone Bitart ([place] (5/325)) 1 tab Q6H PRN PO .MOD PAIN 4- 6 Last administered on 04/13/19at 08:13; Admin Dose 1 TAB; Start 04/12/19 at 19:00 Morphine Sulfate (morphine) 2 mg Q4H PRN IV .SEVERE PAIN 7-10 Last administered on 04/13/19at 11:40; Admin Dose 2 MG; Start 04/12/19 at 19:00 Docusate Sodium (Colace) 100 mg Q12H PRN PO .CONSTIPATION; Start 04/12/19 at 19:00 Magnesium Hydroxide (Milk Of Mag) 30 ml DAILY PRN PO .CONSTIPATION; Start 04/12/19 at 19:00 Pantoprazole (Protonix Tab) 40 mg DAILY@06 PO Last administered on 04/13/19at 06:08; Admin Dose 40 MG; Start 04/13/19 at 06:00 Lorazepam (Ativan) 0.5 mg Q6H PRN IV ANXIETY; Start 04/12/19 at 19:00 Sodium Chloride 1,000 ml @ 100 mls/hr Q10H IV Last administered on 04/13/19at 06:08; Admin Dose 100 MLS/HR; Start 04/12/19 at 18:31 Albuterol/ Ipratropium (Duoneb) 3 ml Q4H RESP THERAPY PRN HHN SHORTNESS OF BREATH; Start 04/12/19 at 19:00 Piperacillin Sod/ Tazobactam Sod 100 ml @ 200 mls/hr Q6 IVPB Last administered on 04/13/19at 11:52; Admin Dose 200 MLS/HR; Start 04/13/19 at 00:00 Hydralazine HCl (Apresoline) 10 mg Q6H PRN IV ELEVATED BLOOD PRESSURE; Start 04/12/19 at 19:00 Nitroglycerin (Nitroglycerin (Sl Tab) 0.4 Mg) 1 tab Q5M PRN SL ANGINA; Start 04/12/19 at 19:00 Diagnostic Test (Pha) (Accu-Chek) 1 ea 02 XX ; Start 04/13/19 at 02:00 Fish Oil (Fish Oil) 1,000 mg BID PO Last administered on 04/13/19at 08:13; Admin Dose 1,000 MG; Start 04/12/19 at 21:00 Insulin Glargine (Lantus) 24 units HS SC Last administered on 04/12/19at 21:20; Admin Dose 24 UNITS; Start 04/12/19 at 21:00 Miscellaneous Information 1 ea NOTE XX ; Start 04/12/19 at 19:00 Glucose (Glutose) 15 gm Q15M PRN PO DECREASED GLUCOSE; Start 04/12/19 at 19:00 Glucose (Glutose) 22.5 gm Q15M PRN PO DECREASED GLUCOSE; Start 04/12/19 at 19:00 Dextrose (D50w Syringe) 25 ml Q15M PRN IV DECREASED GLUCOSE; Start 04/12/19 at 19:00 Dextrose (D50w Syringe) 50 ml Q15M PRN IV DECREASED GLUCOSE; Start 04/12/19 at 19:00 Glucagon (Glucagen) 1 mg Q15M PRN IM DECREASED GLUCOSE; Start 04/12/19 at 19:00 Glucose (Glutose) 15 gm Q15M PRN BUCCAL DECREASED GLUCOSE; Start 04/12/19 at 19:00 Insulin Aspart (Novolog Insulin Pen) NOVOLOG *MILD* ALGORITHM WITH MEALS BEDTIME SC Last administered on 04/13/19at 11:58; Admin Dose 1 UNIT; Start 04/12/19 at 21:00 KELLEY CAMILO Apr 13, 2019 12:05
[2019-04-13] MEDS ORDERED: MAGNESIUM SULFATE 3 GM in DEXTROSE 5% 100 ML IVPB ONE (13:00)
--- NOTE | 2019-04-13 13:49 | HP ---
DATE OF ADMISSION: 04/12/2019 HISTORY OF PRESENT ILLNESS: Ari Fuentes is a 38-year-old diabetic male admitted last night through the ER with a right postauricular abscess measuring 1 cm. The ER physician made a decision not to do an I and D and admit the patient for intravenous antibiotics. ENT was consulted to evaluat e the patient. PHYSICAL EXAMINATION: The patient has some postauricular induration and tenderness after informed co nsent was obtained, the area was anesthetized using approximately 2 mL of 1% lidocaine with 1:100,000 epinephrine. The patient was prepped and draped in usual standard fashion. An incision was made us ing #11 blade. A small amount of pus was drained. Culture was obtained. A dressing was applied. IMPRESSION: Infected sebaceous cyst. PLAN: At this point, the patient can be discharged whenever he is stable on antibiotics x1 week. If there are any questions or concerns, have him follow up with ENT. Dictated By: JOSE ASENCIO/TONEY Conf#: [id number] DID#: [id number] CC: KELLEY CAMILO;*EndCC*
[2019-04-13 14:12] VITALS: BP 128/87; PULSE 102; RESP 18
[2019-04-13] MEDS ORDERED: HYDROmorphONE 1 MG/ML SYG IV ONE (14:30)
[2019-04-13 20:00] VITALS: BP 122/70; PULSE 101; RESP 20
[2019-04-13] MEDS: INSULIN GLARGINE [LANTus] (100 UNITS/ML) SYG SC SCH (20:36)
[2019-04-14] MEDS: PIPER-TAZO 3.375 GM IV (PMX) 100 ML IVPB SCH ×4 (00:55→17:01)
[2019-04-14] MEDS: ACCU-CHEK XX SCH (02:00)
[2019-04-14] MEDS: morphine 2 MG INJ IV PRN ×3 (03:41→12:14)
[2019-04-14] MEDS: PANTOPRAZOLE (EC) 40 MG TAB PO SCH (06:12)
[2019-04-14] MEDS: SOD CHLORIDE 0.9% 1,000 ML IV SCH ×2 (07:57→20:16)
[2019-04-14 08:00] VITALS: BP 119/82; PULSE 105; RESP 20
[2019-04-14] MEDS: INSULIN ASPART [NOVOLOG] 3 ML PEN SC SCH ×4 (08:00→20:14)
[2019-04-14] MEDS: FISH OIL 1,000 MG CAP PO SCH ×2 (08:02→20:15)
[2019-04-14 14:00] VITALS: BP 113/80; PULSE 94; RESP 18
--- NOTE | 2019-04-14 15:23 | PN ---
Date/Time of Note Date/Time of Note DATE: 04/14/19 TIME: 15:20 Assessment/Plan VTE Prophylaxis Risk score (from Nsg)>0 risk: 1 SCD applied (from Nsg): Yes Pharmacological prophylaxis: other Lines/Catheters IV Catheter Type (from Nrsg): Peripheral IV Assessment/Plan Hospital Course S: Patient had incision and drainage procedure performed by ENT yesterday for the infected sebaceous cyst. Still complaining of some pain symptoms, tolerating diet. O: Vs- see below PE: GENERAL: lying in bed, presently no acute distress HEENT: Atraumatic. Conjunctivae are pink. Pupils equal, round, and reactive to light. Positive mastoid tenderness NECK: supple RES: Clear to auscultation bilaterally. There are no rales, wheezes or rhonchi. HEART: Regular rate and rhythm. No murmurs, clicks, rubs or gallops. No S3 or S4. GI: NT, ND, soft, no R or G M/S: no LE edema B/L SKIN: Erythema noted to posterior right ear with less swelling. A/P: 38 M p/w: #Right ear pain/abscess: Pain improving, no fevers overnight. Status post I&D by ENT team for sebaceous cyst yesterday. Again, patient failed p.o. antibiotic treatment for the last 2 weeks as outpatient: Again orbit/head CT on admission showed: Persistent right postauricular soft tissue edema/thickening compatible with cellulitis, now extending into the adjacent right neck, with a discrete small focal hypodensity now seen in the right postauricular region concerning for abscess -Continue IV antibiotics for now, monitor CBC, WBC count is still elevated but trending down -Pain control medications, IV fluids, Tylenol PM pain fevers, -Follow-up culture results for abscess drainage # DM -A1c is 9.2. Sugars improved since admission -Monitor sugars, continue current doses of sliding scale insulin and Lantus # high chol: Continue fish oil Dispo: Likely home in 24 hours if his pain symptoms have been controlled and white blood cell count trending down close to normal range Result Diagram: 04/14/19 0543 04/14/19 0542 Results 24hrs Laboratory Tests Test 04/13/19 17:08 04/13/19 20:33 04/14/19 02:07 04/14/19 05:42 Bedside Glucose 173 213 146 Sodium Level 140 Potassium Level 4.2 Chloride Level 103 Carbon Dioxide Level 28 Anion Gap 9 Blood Urea Nitrogen 11 Creatinine 0.74 Est Glomerular Filtrat > 60 Rate mL/min Glucose Level 108 # Calcium Level 8.5 Test 04/14/19 05:43 04/14/19 07:53 04/14/19 12:03 White Blood Count 11.9 #H Red Blood Count 3.89 L Hemoglobin 10.8 L Hematocrit 31.1 L Mean Corpuscular Volume 79.9 L Mean Corpuscular 27.8 L Hemoglobin Mean Corpuscular 34.7 Hemoglobin Concent Red Cell Distribution 12.7 Width Platelet Count 211 Mean Platelet Volume 11.7 H Immature Granulocytes % 0.300 Neutrophils % 66.0 Lymphocytes % 22.6 Monocytes % 8.1 Eosinophils % 2.4 Basophils % 0.6 Nucleated Red Blood 0.0 Cells % Immature Granulocytes # 0.040 H Neutrophils # 7.8 H Lymphocytes # 2.7 Monocytes # 1.0 H Eosinophils # 0.3 Basophils # 0.1 Nucleated Red Blood 0.0 Cells # Phosphorus Level 4.1 Magnesium Level 1.7 Bedside Glucose 117 174 Exam/Review of Systems Exam Vitals Vital Signs Date Temp Pulse Resp B/P (MAP) Pulse Ox O2 O2 Flow FiO2 Time Delivery Rate 04/14/19 98.4 105 20 119/82 99 Room Air 08:00 (94) Intake and Output 04/13/19 04/13/19 04/14/19 1515:00 23:00 07:00 IntakeIntake Total 1640 ml 1446 ml 1400 ml BalanceBalance 1640 ml 1446 ml 1400 ml Results Results 24hrs Laboratory Tests Test 04/13/19 17:08 04/13/19 20:33 04/14/19 02:07 04/14/19 05:42 Bedside Glucose 173 213 146 Sodium Level 140 Potassium Level 4.2 Chloride Level 103 Carbon Dioxide Level 28 Anion Gap 9 Blood Urea Nitrogen 11 Creatinine 0.74 Est Glomerular Filtrat > 60 Rate mL/min Glucose Level 108 # Calcium Level 8.5 Test 04/14/19 05:43 04/14/19 07:53 04/14/19 12:03 White Blood Count 11.9 #H Red Blood Count 3.89 L Hemoglobin 10.8 L Hematocrit 31.1 L Mean Corpuscular Volume 79.9 L Mean Corpuscular 27.8 L Hemoglobin Mean Corpuscular 34.7 Hemoglobin Concent Red Cell Distribution 12.7 Width Platelet Count 211 Mean Platelet Volume 11.7 H Immature Granulocytes % 0.300 Neutrophils % 66.0 Lymphocytes % 22.6 Monocytes % 8.1 Eosinophils % 2.4 Basophils % 0.6 Nucleated Red Blood 0.0 Cells % Immature Granulocytes # 0.040 H Neutrophils # 7.8 H Lymphocytes # 2.7 Monocytes # 1.0 H Eosinophils # 0.3 Basophils # 0.1 Nucleated Red Blood 0.0 Cells # Phosphorus Level 4.1 Magnesium Level 1.7 Bedside Glucose 117 174 Medications Medication Current Medications IV Flush (NS 3 ml) 3 ml PER PROTOCOL IV ; Start 04/12/19 at 19:00 Ondansetron HCl (Zofran Inj) 4 mg Q6H PRN IV NAUSEA/VOMITING; Start 04/12/19 at 19:00 Acetaminophen (Tylenol Tab) 650 mg Q6H PRN PO .PAIN 1-3 OR TEMP Last administ ered on 04/13/19at 14:01; Admin Dose 650 MG; Start 04/12/19 at 19:00 Acetaminophen/ Hydrocodone Bitart ([place] (5/325)) 1 tab Q6H PRN PO .MOD PAIN 4- 6 Last administered on 04/13/19at 20:29; Admin Dose 1 TAB; Start 04/12/19 at 19:00 Morphine Sulfate (morphine) 2 mg Q4H PRN IV .SEVERE PAIN 7-10 Last administered on 04/14/19at 12:14; Admin Dose 2 MG; Start 04/12/19 at 19:00 Docusate Sodium (Colace) 100 mg Q12H PRN PO .CONSTIPATION; Start 04/12/19 at 19:00 Magnesium Hydroxide (Milk Of Mag) 30 ml DAILY PRN PO .CONSTIPATION; Start 04/12/19 at 19:00 Pantoprazole (Protonix Tab) 40 mg DAILY@06 PO Last administered on 04/14/19at 06:12; Admin Dose 40 MG; Start 04/13/19 at 06:00 Lorazepam (Ativan) 0.5 mg Q6H PRN IV ANXIETY; Start 04/12/19 at 19:00 Sodium Chloride 1,000 ml @ 100 mls/hr Q10H IV Last administered on 7/6/19at 07:57; Admin Dose 100 MLS/HR; Start 04/12/19 at 18:31 Albuterol/ Ipratropium (Duoneb) 3 ml Q4H RESP THERAPY PRN HHN SHORTNESS OF BREATH; Start 04/12/19 at 19:00 Piperacillin Sod/ Tazobactam Sod 100 ml @ 200 mls/hr Q6 IVPB Last administered on 04/14/19at 12:08; Admin Dose 200 MLS/HR; Start 04/13/19 at 00:00 Hydralazine HCl (Apresoline) 10 mg Q6H PRN IV ELEVATED BLOOD PRESSURE; Start at 19:00 Nitroglycerin (Nitroglycerin (Sl Tab) 0.4 Mg) 1 tab Q5M PRN SL ANGINA; Start 04/12/19 at 19:00 Diagnostic Test (Pha) (Accu-Chek) 1 ea 02 XX ; Start 04/13/19 at 02:00 Fish Oil (Fish Oil) 1,000 mg BID PO Last administered on 04/14/19at 08:02; Admin Dose 1,000 MG; Start 04/12/19 at 21:00 Insulin Glargine (Lantus) 24 units HS SC Last administered on 04/13/19at 20:36; Admin Dose 24 UNITS; Start 04/12/19 at 21:00 Miscellaneous Information 1 ea NOTE XX ; Start 04/12/19 at 19:00 Glucose (Glutose) 15 gm Q15M PRN PO DECREASED GLUCOSE; Start 04/12/19 at 19:00 Glucose (Glutose) 22.5 gm Q15M PRN PO DECREASED GLUCOSE; Start 04/12/19 at 19:00 Dextrose (D50w Syringe) 25 ml Q15M PRN IV DECREASED GLUCOSE; Start 04/12/19 at 19:00 Dextrose (D50w Syringe) 50 ml Q15M PRN IV DECREASED GLUCOSE; Start 04/12/19 at 19:00 Glucagon (Glucagen) 1 mg Q15M PRN IM DECREASED GLUCOSE; Start 04/12/19 at 19:00 Glucose (Glutose) 15 gm Q15M PRN BUCCAL DECREASED GLUCOSE; Start 04/12/19 at 19:00 Insulin Aspart (Novolog Insulin Pen) NOVOLOG *MILD* ALGORITHM WITH MEALS BEDTIME SC Last administered on 04/14/19at 12:07; Admin Dose 1 UNIT; Start 04/12/19 at 21:00 KELLEY CAMILO Apr 14, 2019 15:23
[2019-04-14] MEDS: HYDROCODONE/APAP (5/325) TAB PO PRN (15:42)
[2019-04-14] MEDS ORDERED: morphine 2 MG INJ IV PRN (19:00)
[2019-04-14 20:10] VITALS: BP 134/75; PULSE 94; RESP 19
[2019-04-14] MEDS: INSULIN GLARGINE [LANTus] (100 UNITS/ML) SYG SC SCH (20:15)
[2019-04-15] MEDS: PIPER-TAZO 3.375 GM IV (PMX) 100 ML IVPB SCH ×3 (00:51→12:39)
[2019-04-15] MEDS: ACCU-CHEK XX SCH (02:17)
[2019-04-15] MEDS: SOD CHLORIDE 0.9% 1,000 ML IV SCH (06:09)
[2019-04-15] MEDS: PANTOPRAZOLE (EC) 40 MG TAB PO SCH (06:09)
[2019-04-15 08:00] VITALS: BP 127/86; PULSE 84; RESP 20
[2019-04-15] MEDS: INSULIN ASPART [NOVOLOG] 3 ML PEN SC SCH ×2 (08:00→12:33)
[2019-04-15] MEDS: FISH OIL 1,000 MG CAP PO SCH (08:23)
--- NOTE | 2019-04-15 13:26 | PDOCDIS ---
Discharge Instructions CONDITION [id number] Patient Condition: [id number] Stable HOME CARE INSTRUCTIONS: [id number] Diet Instructions: [id number] Low Fat /Cholesterol ACTIVITY: [id number] Activity Restrictions: [id number] Slowly Increase Activity Rest between Activity Avoid heavy lifting FOLLOW UP/APPOINTMENTS Follow-up Plan Please take your medications as prescribed, see your doctor in the clinic in the next 1 week. KELLEY CAMILO Apr 15, 2019 13:26
[2019-04-15] MEDS ORDERED: AMOX1TAB10 PO (13:28)
[2019-04-15] MEDS ORDERED: HYDR-3601 PO (13:28)
--- NOTE | 2019-04-15 13:33 | DS ---
Date/Time of Note Date/Time of Note DATE: 04/15/19 TIME: 13:31 Discharge Summary Admission/Discharge Info Admit Date/Time Apr 12, 2019 at 17:06 Discharge Date/Time Discharge Diagnosis #Right ear pain/abscess: Pain improving, no fevers overnight. Status post I&D by ENT team for sebaceous cyst # DM -A1c is 9.2. Sugars improved since admission # high chol: Continue fish oil Patient Condition: Stable Procedures April 13, 2019: incision and drainage procedure performed by ENT yesterday for the infected sebaceous cyst. Hx of Present Illness 38-year-old male past medical history of diabetes, high cholesterol, who presents with right ear pain. Patient was seen in the ER 2 weeks ago when symptoms first began and sent home with 14 days of p.o. antibiotics. Patient stated some improvement with the antibiotic treatment, however the pain has returned and intensified over the last couple days. Denies fevers. Patient is diabetic and uses insulin. Patient has a nausea symptoms but denies any vomiting. Denies any visual changes or headaches. Patient denied any diarrhea constipation, no upper or lower GI bleeding. When he came in today he was found with elevated blood sugars in 3-400 range was given insulin in the ER. Also his head/orbital CT shows Persistent right postauricular soft tissue edema/thickening compatible with cellulitis, now extending into the adjacent right neck, with a discrete small focal hypodensity now seen in the right postauricular region concerning for abscess, and because of the sick call has been made out to the ENT doctor to come evaluate the patient, patient also got IV antibiotics to start in the ER for this. Hospital Course Patient was admitted and placed on IV antibiotics. Patient was seen by ENT doctor and had incision and drainage performed for likely infected sebaceous cyst. Patient's sugars were controlled with appropriate insulin regimen as A1c was found to be 9.2. Patient received bedside wound care after this incision and drainage procedure. White blood cell count trended down, no fevers. Patient was given pain control medications for pain relief. He was able to ambulate and tolerated p.o. diet. Because his labs are stable and vital signs are stable today he will be discharged home today in improved condition. See below for full list of discharge medications, this will include 1 more week of p.o. antibiotics. Home Meds Active Scripts Hydrocodone Bit-Acetaminophen (Hydrocodone Bit-APAP) 5-325MG Tablet, 1 TAB PO Q6H PRN for .MOD PAIN 4-6, #10 TAB Prov:AQUILES CAMILOKELLEY S. 04/15/19 Amoxicillin/Potassium Clav (Amox-Clav 875-125 mg Tablet) 875-125 mg Tab, 1 TAB PO BID for 7 Days, #14 TAB Prov:JONATHAN CAMILOP S. 04/15/19 Insulin Aspart* (Novolog Insulin Pen*) 100 Unit/Ml Soln, 12 UNIT SC WITH MEALS for 30 Days Prov:NAVDEEP REID HARDENING MACHINE OPERATOR HELPER 01/29/15 Insulin Glargine* (Lantus*) 100 Unit/Ml Soln, 24 UNIT SC HS for 30 Days Prov:NAVDEEP REID HARDENING MACHINE OPERATOR HELPER 01/29/15 Metformin Hcl (Glucophage) 500 Mg Tab, 500 MG PO PC BREAKFAST DINNER, #60 Prov:NAVDEEP REID NP 01/29/15 Fish Oil* (Fish Oil*) 1,000 Mg Cap, 1000 MG PO BID for 30 Days, CAP Prov:NAVDEEP REID HARDENING MACHINE OPERATOR HELPER 01/29/15 Reported Medications Ergocalciferol (Vitamin D) 400 Unit Capsule, 69759 UNIT PO, CAP 04/13/19 Cyclobenzaprine Hcl* (Cyclobenzaprine Hcl*) 5 Mg Tablet, 5 MG PO QHS, #60 TAB 04/13/19 Lisinopril* (Lisinopril*) 2.5 Mg Tablet, 2.5 MG PO DAILY, #30 TAB 04/13/19 Atorvastatin Calcium (Atorvastatin Calcium) 20 Mg Tablet, 20 MG PO QHS, #30 TAB 04/13/19 Gabapentin* (Gabapentin*) 400 Mg Capsule, 400 MG PO TID, #90 CAP 04/13/19 Discontinued Reported Medications Metformin* (Glucophage*) 1,000 Mg Tablet, 1000 MG PO WITH BREAKFAST DINNE, #30 TAB 04/13/19 Discontinued Scripts Naloxone Hcl 1mg/1mL 2mL syr (Narcan 1mg/1mL 2mL syr) 1 Mg/Ml Soln, 1 ML NS .Q2- 3 MIN PRN for OPIOID OVERDOSE, #2 SYR Dispense with mucosal atomizer devices. Using mucosal atomizer devices spray 1mL into each nostril. Repeat after 2-3 minutes if no or minimal response. Prov:SEKOU SAENZ 03/30/19 Ibuprofen* (Motrin*) 600 Mg Tab, 600 MG PO Q6H PRN for PAIN AND OR ELEVATED TEMP, #30 TAB Prov:SEKOU SAENZ 03/30/19 Oxycodone HCl/Acetaminophen (Percocet 5-325 mg Tablet) 1 Each Tablet, 1-2 EACH PO Q6, #20 TAB Prov:SEKOU SAENZ 03/30/19 Hydrocodone/Acetaminophen (Pfeifer 5-325 Tablet) 1 Each Tablet, 1 TAB PO Q6H PRN for PAIN, #10 TAB Prov:SEKOU SAENZ 12/18/18 Ibuprofen* (Motrin*) 600 Mg Tab, 600 MG PO Q6 for pain, #30 TAB Prov:SEKOU SAENZ 12/18/18 Prednisone* (Prednisone*) 20 Mg Tab, 40 MG PO DAILY for back pain for 4 Days, TAB Prov:SEKOU SAENZ 12/18/18 Nph, Human Insulin Isophane (Humulin N) 100 Unit/Ml Solution, 6 UNIT SC HS for 30 Days, VIAL Prov:NAVDEEP REID HARDENING MACHINE OPERATOR HELPER 01/29/15 Follow-up Plan Please take your medications as prescribed, see your doctor in the clinic in the next 1 week. Primary Care Provider Care Physician No Primary Time spent on discharge: > 30 minutes Pending Labs Laboratory Tests Test 04/14/19 17:00 04/14/19 20:07 04/15/19 02:11 04/15/19 05:23 Bedside 154 203 118 Glucose mg/dL (70-220) mg/dL (70-220) mg/dL (70-220) White Blood 8.1 Count 10^3/ul (4.8-1 0.8) Red Blood 3.83 Count 10^6/ul (4.70- 6.10) Hemoglobin 10.7 g/dl (14.0-18. 0) Hematocrit 30.9 % (42.0-52.0) Mean 80.7 Corpuscular fl (82.0-101.0 Volume ) Mean 27.9 Corpuscular pg (29.0-33.0) Hemoglobin Mean 34.6 Corpuscular g/dl (32.0-37. Hemoglobin Conc 0) ent Red Cell 12.7 Distribution % (11.5-14.5) Width Platelet Count 235 10^3/UL (140-4 15) Mean Platelet 11.8 Volume fl (7.4-10.4) Immature 0.200 Granulocytes % % (0.001-0.429 ) Neutrophils % 51.2 % (39.0-77.0) Lymphocytes % 35.3 % (15.0-51.0) Monocytes % 8.1 % (0.0-11.0) Eosinophils % 4.5 % (0.0-7.0) Basophils % 0.7 % (0.0-2.0) Nucleated Red 0.0 Blood Cells % /100WBC (0.0-0 .0) Immature 0.020 Granulocytes # 10^3/ul (0.0-0 .031) Neutrophils # 4.2 10^3/ul (1.6-7 .5) Lymphocytes # 2.9 10^3/ul (0.8-2 .9) Monocytes # 0.7 10^3/ul (0.3-0 .9) Eosinophils # 0.4 10^3/ul (0.0-0 .5) Basophils # 0.1 10^3/ul (0.0-0 .1) Nucleated Red 0.0 Blood Cells # 10^3/ul (0.0-0 .0) Sodium Level 142 mmol/L (135-14 4) Potassium 4.5 Level mmol/L (3.5-5. 1) Chloride Level 105 mmol/L (97-110 ) Carbon Dioxide 30 Level mmol/L (21-31) Anion Gap 7 (5-13) Blood Urea 13 Nitrogen mg/dl (7-20) Creatinine 0.78 mg/dl (0.61-1. 24) Est Glomerular > 60 Filtrat mL/min (>60) Rate mL/min Glucose Level 117 mg/dl (70-220) Calcium Level 8.9 mg/dl (8.4-10. 2) Test 04/15/19 08:17 04/15/19 12:30 Bedside 119 188 Glucose mg/dL (70-220) mg/dL (70-220) KELLEY CAMILO Apr 15, 2019 13:33
[2019-04-15 14:00] VITALS: BP 123/86; PULSE 82; RESP 20
== END 2019-04-15 15:00 | disposition home or self-care (01) | DRG 607 ==
LOC: FTE 13:16 → PP2 17:06
PROVIDERS: ADMIT Hospitalist; ATTEND Hospitalist
PROC: 099 Ear, Nose, Sinus, Drainage (ICD-10-PCS; principal; 2019-04-12)
DX: L72.3 Sebaceous cyst (principal); B95.0 Streptococcus, group A, as the cause of diseases classified elsewhere; E11.9 Type 2 diabetes mellitus without complications; E78.5 Hyperlipidemia, unspecified; H66.41 Suppurative otitis media, unspecified, right ear; H60.01 Abscess of right external ear; Z79.4 Long term (current) use of insulin
CPT/HCPCS: 36415; 70480; 80048; 80053; 80061; 81003; 82962; 83036; 83605; 83735; 84100; 84439; 84443; 85025; 87070; 96361; 96365; 96367; 96375; J1170; J1815; J2270; J2405; J2543; J3370; J3475; J7030; Q9967